=== PATIENT | female | born 1965 | race Caucasian/White ===

== ENCOUNTER 2022-04-16 16:57 | Emergency (ER) | payer BC, MEDICAID ==
[~2022-04-16] VITALS: Ht 170.2 cm; Wt 99.8 kg
[~2022-04-16 16:57] MED LIST: ATOR40TA68 PO; CYCL10TA24 PO; INDA2.5T5 PO; INSU10VI4 SUBCUT; LISI-217 PO; LUTE40CA PO; PRAM1TAB4 PO; PREG100C PO; VITD2000 PO
[2022-04-16 17:00] VITALS: BP_SYST 147
--- NOTE | 2022-04-16 17:00 | NUR ---
Patient triaged and placed in waiting room. VSS and patient appears in no acute distress at this time. Accompanied by SPOUSE, awaiting available bed, and MD notified of need for MSE.
--- NOTE | 2022-04-16 17:31 | NUR ---
DR CORCORAN OUT TO TRIAGE ROOM FOR EVALUATION
[2022-04-16] MEDS ORDERED: MORPHINE 4 MG INJ. 4 MG/ML VIAL IVP ONE ×2 (17:45→20:30)
--- NOTE | 2022-04-16 17:54 | NUR ---
Patient to ER bed 06 to gown for evaluation. Side rails up.
--- NOTE | 2022-04-16 19:23 | NUR ---
First contact with patient at this time. Patient presents to ED from home with c/o pain s/p mechanical fall. Patient reports pain 7/10 on right side of neck/shoulder area and right side hip. Patient was sleeping in bed with side rails raised and patient's at bedside. Nad noted at this time.
--- NOTE | 2022-04-16 19:23 | NUR ---
Received report from LISS Billingsley; assuming care of patient at this time.
[2022-04-16 19:24] LABS: BASOPHILS # (AUTO) 0.1 K/uL (0.0-0.2); BASOPHILS % (AUTO) 1.2 % (0.0-2.0); EOSINOPHILS # (AUTO) 0.4 K/uL (0.0-0.4); EOSINOPHILS % (AUTO) 3.6 % (0.0-4.0); HEMATOCRIT 40.7 % (36-48); LYMPHOCYTES # (AUTO) 3.8 K/uL (1.0-5.5); LYMPHOCYTES % (AUTO) 36.8 % (20.5-51.5); MEAN CORPUSCULAR VOLUME 80 fL (79.0-98.0); MONOCYTES # (AUTO) 0.5 K/uL (0.0-1.0); NEUTROPHILS # (AUTO) 5.5 K/uL (1.8-7.7); NEUTROPHILS % (AUTO) 53.4 % (40.0-70.0); PLATELET COUNT (AUTO) 211 K/uL (130-430); RED BLOOD CELL COUNT(AUTO) 5.08 MIL/uL (4.2-6.2); RED CELL DISTRIBUTION WIDTH 14.6 % (9.0-15.0); WHITE BLOOD COUNT (AUTO) 10.3 K/uL (4.8-10.8)
[2022-04-16 19:55] LABS: ALANINE AMINOTRANSFERASE 26 U/L (12-78); ALBUMIN 3.1 g/dL (3.4-4.8); ANION GAP 8 (5-15); ASPARTATE AMINOTRANSFERASE 24 U/L (10-37); CALCIUM 8.9 mg/dL (8.4-11.0); CHLORIDE 102 mmol/L (98-107); CREATININE 0.72 mg/dL (0.55-1.30); GLUCOSE 203 mg/dL (70-99); POTASSIUM 3.8 mmol/L (3.5-5.1); TOTAL BILIRUBIN 0.4 mg/dL (0.0-1.0); UREA NITROGEN, BLOOD 14 mg/dL (8-21)
[2022-04-16 20:24] LABS: GFR AFRICAN AMERICAN 109 mL/min (>90)
--- NOTE | 2022-04-16 21:18 | NUR ---
natalia obtained and sent to lab
--- NOTE | 2022-04-16 22:47 | NUR ---
Admit bed requested Patient will be admitted to care of . Admitted to Med Surg unit. Diagnosis Fall Inpatient (Yes or No) N Observation (Yes or No) Orientation concerns or request close to nursing station (Yes or No) Y Covid Status NEGATIVE On vent or bipap N Isolation requirements N Needs a sitter N From Home (Yes or if No enter name of facility) YES Requires Dialysis (Yes or No) NO Med Rec Completed (Yes of No) YES
[2022-04-16] MEDS ORDERED: MUPIROCIN 2% TOPICAL OINTMENT 22 GM NS PRN (23:00)
[2022-04-16] MEDS ORDERED: INSULIN LISPRO SLIDING SCALE 100 UNITS/ML VIAL (humaLOG) SUBCUT PRN (23:00)
[2022-04-16] MEDS ORDERED: LORazepam 2 MG/ML VIAL IVP PRN (23:00)
[2022-04-16] MEDS ORDERED: ZOLPIDEM TARTRATE 5 MG TABLET PO PRN (23:00)
[2022-04-16] MEDS ORDERED: KETOROLAC TROMETHAMINE 15 MG VIAL IVP PRN (23:00)
[2022-04-16] MEDS ORDERED: DOCUSATE SODIUM 100 MG CAPSULE PO PRN (23:00)
[2022-04-16] MEDS ORDERED: ACETAMINOPHEN 325 MG TABLET PO PRN (23:00)
[2022-04-16] MEDS ORDERED: ONDANSETRON HCL 4 MG/2 ML VIAL IVP PRN (23:00)
[2022-04-16] MEDS ORDERED: DEXTROSE 50% JECT 50 ML DISP.SYRIN IVP PRN (23:00)
[2022-04-16] MEDS ORDERED: MAGNESIUM SULFATE 50 ML IV PRN (23:00)
[2022-04-16] MEDS ORDERED: POTASSIUM CHLORIDE 20 MEQ TAB.PRT.SR PO PRN (23:00)
[2022-04-16] MEDS ORDERED: INSU100I26 SQ (23:32)
[2022-04-16] MEDS ORDERED: SENN8.6T19 PO (23:32)
[2022-04-16] MEDS ORDERED: GLIM4TAB PO (23:32)
[2022-04-16] MEDS ORDERED: PANT20TA2 PO (23:32)
[2022-04-16] MEDS ORDERED: LOSA25TA3 PO (23:32)
[2022-04-16] MEDS ORDERED: ACET-2634 PO (23:32)
[2022-04-16] MEDS ORDERED: DULA1.5P SQ (23:32)
[2022-04-16] MEDS ORDERED: HYDR50SY PO (23:32)
--- NOTE | 2022-04-16 23:36 | NUR ---
Patient sleeping comfortably in bed with side rails raised. Patient's at bedside. Nad noted at this time.
[2022-04-16 23:44] VITALS: BP_SYST 107
--- NOTE | 2022-04-17 00:50 | NUR ---
Patient does not wish to proceed with medical care recommended by Dr Weston. Patient given information related to possible complications, up to and including , which could occur as a result of leaving hospital at this time. Patient verbalizes understanding of risks involved leaving against medical advice. Patient has signed AMA form.
[2022-04-17] MEDS ORDERED: HEPARIN SODIUM,PORCINE 5,000 UNITS/ML VIAL SUBCUT SCH (09:00)
== END 2022-04-17 00:50 | disposition left against medical advice (07) ==
LOC: SED 16:57 → UNDOADMOB 22:45 → SMU 22:45
DX: M54.2 Cervicalgia (principal); M25.511 Pain in right shoulder; E11.9 Type 2 diabetes mellitus without complications; I11.0 Hypertensive heart disease with heart failure; I50.9 Heart failure, unspecified; Z91.018 Allergy to other foods; Z79.4 Long term (current) use of insulin; Z88.5 Allergy status to narcotic agent; Z79.899 Other long term (current) drug therapy; Z20.822 Contact with and (suspected) exposure to COVID-19; W01.0XXA Fall on same level from slipping, tripping and stumbling without subsequent striking against object, initial encounter; Y93.89 Activity, other specified; Y92.89 Other specified places as the place of occurrence of the external cause; Y99.8 Other external cause status
CPT/HCPCS: 99285; 70450; 96374; 87426; 80053; 82962; 85025; 84484; 36415; 73020; 72125; 76376; 96376; J2270